=== PATIENT | male | born 1965 | race Caucasian/White ===

== ENCOUNTER 2017-04-27 11:32 | Inpatient (IN) | payer BC ==
[~2017-04-27] VITALS: Ht 175.3 cm; Wt 81.8 kg
[2017-04-27] MEDS ORDERED: DILTIAZEM 5 MG/ML, 5ML ONE ×2 (11:36→12:22)
[2017-04-27] MEDS: DILTIAZEM 5 MG/ML, 5ML IVPush ONE ×2 (11:40→12:24)
[2017-04-27] MEDS ORDERED: LISI-167 PO (11:46)
[2017-04-27] MEDS ORDERED: ENOXAPARIN 80 MG/0.8 ML ONE (11:54)
[2017-04-27] MEDS ORDERED: DILTIAZEM 125 MG in SODIUM CHLORIDE 0.9% 100 ML IV ONE (11:59)
[2017-04-27] MEDS ORDERED: ENOXAPARIN 80 MG/0.8 ML SQ SCH (12:00)
[2017-04-27] MEDS ORDERED: SODIUM CHLORIDE FLUSH 10ML SYR IVF ONE (12:00)
[2017-04-27 12:08] LABS: BASOPHILS # (AUTO) 0.01 x10^3/uL (0-0.1); BASOPHILS % (AUTO) 0 % (0-1); EOSINOPHILS # (AUTO) 0.02 x10^3/uL (0-0.4); EOSINOPHILS % (AUTO) 0 % (1-7); LYMPHOCYTES # (AUTO) 0.33 x10^3/uL (1-3.4); LYMPHOCYTES % (AUTO) 6 % (22-44); MD NO; MEAN CORPUSCULAR HEMOGLOBIN 33.6 pg (27.5-34.5); MEAN CORPUSCULAR VOLUME 98.8 fL (81-97); MEAN PLATELET VOLUME 8.8 fL (7.4-10.4); MONOCYTES # (AUTO) 0.36 x10^3/uL (0.2-0.8); MONOCYTES % (AUTO) 7 % (2-9); NEUTROPHILS # (AUTO) 4.41 x10^3/uL (1.8-6.8); NEUTROPHILS % (AUTO) 86 % (42-75); PLATELET COUNT 252 x10^3/uL (130-400); RED BLOOD COUNT 4.98 x10^6/uL (4.38-5.82)
[2017-04-27 12:12] LABS: INTERNATIONAL NORMALIZED RATIO 1.08 (0.93-1.1); PROTHROMBIN TIME 11.1 Seconds (9.6-11.5)
[2017-04-27 12:17] LABS: ANION GAP 11 mmol/L (5-15); CALCIUM 8.6 mg/dL (8.5-10.1); CHLORIDE 102 mmol/L (98-107)
[2017-04-27 12:22] LABS: TROPONIN I < 0.015 ng/mL (0.000-0.045)
[2017-04-27] MEDS ORDERED: DILTIAZEM 5 MG/ML, 5ML IVPush ONE (12:30)
[2017-04-27] MEDS ORDERED: SODIUM CHLORIDE 0.9% 1,000ML IVBOLUS ONE (13:00)
[2017-04-27] MEDS ORDERED: SODIUM CHLORIDE 0.9% 1,000 ML IV SCH (13:57)
[2017-04-27] MEDS ORDERED: DOCUSATE 100 MG CAPSULE PO PRN (14:00)
[2017-04-27] MEDS ORDERED: ACETAMINOPHEN 325 MG TABLET PO PRN (14:00)
[2017-04-27] MEDS ORDERED: ONDANSETRON 2MG/ML, 2ML IVPush PRN (14:00)
[2017-04-27] MEDS ORDERED: HYDROcodone/APAP 5/325 TABLET PO PRN (14:00)
[2017-04-27] MEDS ORDERED: morphine SULFATE 10 MG/ML, 1ML IVPush PRN (14:00)
[2017-04-27] MEDS: ENOXAPARIN 80 MG/0.8 ML SQ SCH ×2 (15:33→23:21)
[2017-04-27 15:40] VITALS: BP 92/51
[2017-04-27] MEDS ORDERED: AMIODARONE 900 MG in DEXTROSE 5% 482 ML IV PRN (15:58)
[2017-04-27] MEDS ORDERED: AMIODARONE 150 MG in DEXTROSE 5% 100 ML IVPB ONE (15:58)
[2017-04-27] MEDS ORDERED: FILTER 0.22 MICRON FOR AMIODARONE IV PRN (16:30)
[2017-04-27] MEDS: DILTIAZEM CD 180 MG CAP.ER.24H PO SCH (17:07)
[2017-04-27] MEDS ORDERED: DIPHENHYDRAMINE 25 MG CAPSULE PO PRN (17:30)
[2017-04-27 18:57] VITALS: BP 103/66
[2017-04-28 01:32] VITALS: BP 98/71
[2017-04-28 08:07] VITALS: BP 106/69
[2017-04-28] MEDS: DILTIAZEM CD 180 MG CAP.ER.24H PO SCH (08:28)
[2017-04-28] MEDS ORDERED: LISINOPRIL 10 MG TABLET PO SCH (09:00)
[2017-04-28] MEDS: ENOXAPARIN 80 MG/0.8 ML SQ SCH (13:05)
[2017-04-28] MEDS ORDERED: ASPI-515 PO (14:45)
[2017-04-28 16:45] VITALS: BP 113/83
== END 2017-04-28 18:29 | disposition home or self-care (01) | DRG 309 ==
LOC: ED 13:09 → EDIP 13:10 → ED 13:26 → 5SO 14:09
PROVIDERS: ADMIT Hospitalist; ATTEND Family Medicine
PROC: B246ZZ4 Ultrasonography of Right and Left Heart, Transesophageal (ICD-10-PCS; principal; 2017-04-27)
PROC: 5A2204Z Restoration of Cardiac Rhythm, Single (ICD-10-PCS; 2017-04-27)
DX: I48.0 Paroxysmal atrial fibrillation (principal); D68.69 Other thrombophilia; I10 Essential (primary) hypertension; Z79.82 Long term (current) use of aspirin; Z80.9 Family history of malignant neoplasm, unspecified; Z87.891 Personal history of nicotine dependence; Z79.899 Other long term (current) drug therapy
CPT/HCPCS: 36415; 71045; 80048; 82040; 83880; 84484; 85025; 85610; 93005; 96365; 96366; 96372; 96375; 96376; J1650; J0282; J7030; J7060

== ENCOUNTER 2018-05-21 23:23 | Inpatient (IN) | payer BC ==
[~2018-05-21] VITALS: Ht 175.3 cm; Wt 85.9 kg
[~2018-05-21 23:23] MED LIST: ASPI-515 PO; LISI-167 PO
[2018-05-21] MEDS ORDERED: PROPOFOL 10 MG/ML, 20ML ONE (23:44)
--- NOTE | 2018-05-21 23:46 | NUR ---
52 Y/O MALE BIB [facility] AFTER EXPERIENCING A SUDDEN ONSET OF DIZZINESS WITH A SYNCOPAL EPISODE IN WHICH HE WAS GUIDED TO THE FLOOR, NO TRAUMA NOTED. PT WAS FOUND TO BE IN A FIB BY EMS, RATE IN 140S. PT CONTINUES TO C/O DIZZINESS, DENIES ANY CP, SOB, N/V. BP 99/57. EMS ESTABLISHED IV AND TRANSPORTED. UPON ARRIVAL TO ER THE PT IS CAOX4 WITH A GCS OF 15, CONTINUES TO C/O DIZZINESS, DENIES ANY SOB, CP, N/V. PT STATES HE WAS IN AFIB ABOUT A WEEK AGO AND CARDIOVERTED. MONITORING EQUIPMENT APPLIED, AFIB ON MONITOR, NO ST CHANGES PRESENT, NO ECTOPY NOTED. DR. WATSON AT BEDSIDE EVALUATING PT.
[2018-05-21 23:52] LABS: BASOPHILS # (AUTO) 0.04 x10^3/uL (0-0.1); BASOPHILS % (AUTO) 1 % (0-1); EOSINOPHILS # (AUTO) 0.12 x10^3/uL (0-0.4); EOSINOPHILS % (AUTO) 2 % (1-7); LYMPHOCYTES # (AUTO) 2.23 x10^3/uL (1-3.4); LYMPHOCYTES % (AUTO) 44 % (22-44); MD NO; MEAN CORPUSCULAR HEMOGLOBIN 31.7 pg (27.5-34.5); MEAN CORPUSCULAR HGB CONC 34.6 g/dL (33.2-36.2); MEAN CORPUSCULAR VOLUME 91.4 fL (81-97); MEAN PLATELET VOLUME 7.4 fL (7.4-10.4); MONOCYTES # (AUTO) 0.72 x10^3/uL (0.2-0.8); MONOCYTES % (AUTO) 14 % (2-9); NEUTROPHILS # (AUTO) 1.99 x10^3/uL (1.8-6.8); NEUTROPHILS % (AUTO) 39 % (42-75); PLATELET COUNT 254 x10^3/uL (130-400); RED BLOOD COUNT 4.64 x10^6/uL (4.38-5.82); RED CELL DISTRIBUTION WIDTH 12.8 % (9.4-14.8)
--- NOTE | 2018-05-21 23:54 | NUR ---
CONSENT SIGNED, PT PLACED ON O2 VIA NC, AND ETCO2 ATTACHED, PADS PLACED, CODE CART AT BEDSIDE. FLUIDS INFUSING.
[2018-05-22] MEDS ORDERED: PROPOFOL 10 MG/ML, 20ML IVPush ONE
[2018-05-22] MEDS ORDERED: ONDANSETRON 2MG/ML, 2ML IVPush ONE
[2018-05-22] MEDS ORDERED: SODIUM CHLORIDE 0.9% 1,000ML IVBOLUS ONE
[2018-05-22] MEDS ORDERED: MIDAZOLAM 1 MG/ML, 2ML ONE (00:01)
[2018-05-22] MEDS ORDERED: FENTANYL PF 100 MCG/2ML ONE (00:01)
[2018-05-22 00:02] LABS: ALBUMIN 3.6 g/dL (3.4-5.0); ANION GAP 7 mmol/L (5-15); CHLORIDE 103 mmol/L (98-107); CREATININE 1.18 mg/dL (0.7-1.3)
--- NOTE | 2018-05-22 00:10 | NUR ---
PT CARDIOVERTED WITH 200J, CONVERTED TO NSR FOR A BRIEF TIME, WENT BACK INTO AFIB AT A RATE OF 140
--- NOTE | 2018-05-22 00:14 | NUR ---
PT CARDIOVERTED AGAIN AT 200J, CONVERTED TO NSR BRIEFLY AND THEN WENT BACK INTO AFIB
[2018-05-22] MEDS ORDERED: FILTER 0.22 MICRON IV ONE (00:30)
[2018-05-22] MEDS ORDERED: AMIODARONE 150 MG in DEXTROSE 5% 100 ML IV ONE (00:30)
--- NOTE | 2018-05-22 00:40 | NUR ---
PT SLEEPING, AROUSES TO VERBAL STIMULI WITH TOUCH, DENIES ANY COMPLAINTS AT THIS TIME. REMAINS IN AFIB DESPITE CARDIOVERSION X2. AMIODARONE STARTED. VITALS STABLE. SO AT BEDSIDE. WILL CONTINUE TO MONITOR.
[2018-05-22] MEDS ORDERED: MIDAZOLAM 1 MG/ML, 5ML IVPush ONE (01:00)
[2018-05-22] MEDS ORDERED: FENTANYL PF 100 MCG/2ML IV ONE (01:00)
[2018-05-22] MEDS ORDERED: AMIODARONE 900 MG in DEXTROSE 5% 482 ML IV PRN ×2 (01:00→03:00)
[2018-05-22] MEDS ORDERED: APIX5TAB PO (01:16)
[2018-05-22] MEDS: SODIUM CHLORIDE 0.9% 1,000 ML IV SCH (02:50)
[2018-05-22 02:54] VITALS: BP 95/56
[2018-05-22] MEDS ORDERED: hydrALAzine 20 MG/ML, 1ML IVPush PRN (03:00)
[2018-05-22] MEDS ORDERED: DILTIAZEM 5 MG/ML, 5ML IVPush PRN (03:00)
[2018-05-22] MEDS ORDERED: ONDANSETRON ODT 4 MG PO PRN (03:00)
[2018-05-22] MEDS ORDERED: POLYETHYLENE GLYCOL 17 GM PACKET PO PRN (03:00)
[2018-05-22] MEDS ORDERED: NITROGLYCERIN 0.4 MG BOTTLE (25 TABS) SL PRN (03:00)
[2018-05-22] MEDS ORDERED: ZOLPIDEM 5MG TABLET PO PRN (03:00)
[2018-05-22] MEDS ORDERED: GUAIFENESIN/DM 200-20MG, 10ML UDC PO PRN (03:00)
[2018-05-22] MEDS ORDERED: ONDANSETRON 2MG/ML, 2ML IVPush PRN (03:00)
[2018-05-22] MEDS ORDERED: morphine SULFATE 10 MG/ML, 1ML IVPush PRN (03:00)
[2018-05-22] MEDS ORDERED: ACETAMINOPHEN 325 MG TABLET PO PRN (03:00)
[2018-05-22] MEDS ORDERED: FLEC50TA25 PO (03:09)
[2018-05-22] MEDS ORDERED: LISI-170 PO (03:09)
[2018-05-22 06:49] VITALS: BP 117/76
[2018-05-22 07:35] LABS: ALBUMIN 3.3 g/dL (3.4-5.0); ANION GAP 2 mmol/L (5-15); CALCIUM 8.1 mg/dL (8.5-10.1); CHLORIDE 106 mmol/L (98-107); CREATININE 1.17 mg/dL (0.7-1.3)
[2018-05-22 07:38] LABS: TROPONIN I < 0.015 ng/mL (0.000-0.045)
[2018-05-22] MEDS ORDERED: LISINOPRIL 10 MG TABLET PO SCH (09:00)
[2018-05-22] MEDS ORDERED: APIXABAN 5 MG TABLET PO SCH (09:00)
[2018-05-22] MEDS: DILTIAZEM 125 MG in SODIUM CHLORIDE 0.9% 100 ML IV PRN (12:58)
[2018-05-22 14:00] VITALS: BP 111/67
[2018-05-22 19:25] VITALS: BP 145/68
[2018-05-22] MEDS: APIXABAN 5 MG TABLET PO SCH (22:32)
[2018-05-23 02:58] VITALS: BP 120/73
[2018-05-23 05:36] LABS: BASOPHILS # (AUTO) 0.03 x10^3/uL (0-0.1); BASOPHILS % (AUTO) 0 % (0-1); EOSINOPHILS # (AUTO) 0.12 x10^3/uL (0-0.4); EOSINOPHILS % (AUTO) 2 % (1-7); LYMPHOCYTES % (AUTO) 33 % (22-44); MD NO; MEAN CORPUSCULAR HEMOGLOBIN 31.6 pg (27.5-34.5); MEAN CORPUSCULAR HGB CONC 34.2 g/dL (33.2-36.2); MEAN CORPUSCULAR VOLUME 92.3 fL (81-97); MEAN PLATELET VOLUME 7.7 fL (7.4-10.4); MONOCYTES # (AUTO) 0.81 x10^3/uL (0.2-0.8); MONOCYTES % (AUTO) 13 % (2-9); NEUTROPHILS % (AUTO) 52 % (42-75); PLATELET COUNT 251 x10^3/uL (130-400); RED BLOOD COUNT 4.97 x10^6/uL (4.38-5.82)
[2018-05-23 05:41] LABS: ALANINE AMINOTRANSFERASE 125 U/L (12-78); ALBUMIN 3.3 g/dL (3.4-5.0); ANION GAP 5 mmol/L (5-15); CALCIUM 8.2 mg/dL (8.5-10.1); CHLORIDE 104 mmol/L (98-107)
[2018-05-23 05:44] LABS: ALKALINE PHOSPHATASE 111 U/L (45-117); BILIRUBIN,TOTAL 0.6 mg/dL (0.2-1.0); CREATININE 1.02 mg/dL (0.7-1.3); TOTAL PROTEIN 6.9 g/dL (6.4-8.2)
[2018-05-23] MEDS: SODIUM CHLORIDE 0.9% 1,000 ML IV SCH (05:49)
[2018-05-23 07:54] VITALS: BP 119/65
[2018-05-23] MEDS: APIXABAN 5 MG TABLET PO SCH ×2 (08:04→21:49)
[2018-05-23] MEDS: DILTIAZEM 125 MG in SODIUM CHLORIDE 0.9% 100 ML IV PRN (09:40)
[2018-05-23] MEDS ORDERED: MIDAZOLAM 1 MG/ML, 2ML ONE (10:38)
[2018-05-23] MEDS ORDERED: PROPOFOL 50 ML ONE (10:38)
[2018-05-23] MEDS ORDERED: FENTANYL PF 250 MCG/5ML ONE (10:42)
[2018-05-23] MEDS ORDERED: ROCURONIUM 10MG/ML,5ML ONE (10:45)
[2018-05-23] MEDS ORDERED: ONDANSETRON 2MG/ML, 2ML ONE (10:45)
[2018-05-23] MEDS ORDERED: SUCCINYLCHOLINE 20 MG/ML, 10ML ONE (10:45)
[2018-05-23] MEDS ORDERED: DEXAMETHASONE 4 MG/ML, 1ML ONE (10:45)
[2018-05-23] MEDS ORDERED: LIDOCAINE 2%, 20ML ONE (11:16)
[2018-05-23] MEDS ORDERED: PROTAMINE SULFATE 10 MG/ML, 5ML ONE (12:31)
[2018-05-23] MEDS ORDERED: ACETAMINOPHEN 325 MG TABLET PO PRN (13:00)
[2018-05-23] MEDS ORDERED: ONDANSETRON 2MG/ML, 2ML IV PRN (13:30)
[2018-05-23] MEDS ORDERED: OXYcodone 5 MG/5 ML ORAL.SOL UDC PO PRN (13:30)
[2018-05-23] MEDS ORDERED: FENTANYL PF 100 MCG/2ML IV PRN (13:30)
[2018-05-23] MEDS ORDERED: PROMETHAZINE 25 MG/ML, 1ML IV PRN (13:30)
[2018-05-23] MEDS ORDERED: MEPERIDINE/PF 25MG/0.5ML IVPush PRN (13:30)
[2018-05-23] MEDS ORDERED: MIDAZOLAM 1 MG/ML, 2ML IV PRN (13:30)
[2018-05-23] MEDS ORDERED: HYDROmorphone 2 MG/ML, 1ML IVPush PRN (13:30)
[2018-05-23] MEDS ORDERED: OXYcodone 5 MG/5 ML ORAL.SOL UDC ONE (13:34)
[2018-05-23] MEDS ORDERED: FENTANYL PF 100 MCG/2ML ONE (13:34)
[2018-05-23] MEDS: FLECAINIDE 100MG TABLET PO SCH (14:40)
[2018-05-23 14:41] VITALS: BP 113/72
[2018-05-23 20:13] VITALS: BP 122/72
[2018-05-24 00:10] VITALS: BP 125/68
[2018-05-24] MEDS: FLECAINIDE 100MG TABLET PO SCH ×2 (02:37→14:43)
[2018-05-24 06:16] LABS: ALBUMIN 2.8 g/dL (3.4-5.0); ANION GAP 6 mmol/L (5-15); CALCIUM 7.9 mg/dL (8.5-10.1); CHLORIDE 102 mmol/L (98-107); CREATININE 0.86 mg/dL (0.7-1.3)
[2018-05-24 07:42] VITALS: BP 136/87
[2018-05-24] MEDS: APIXABAN 5 MG TABLET PO SCH (08:16)
[2018-05-24 13:22] VITALS: BP 143/83
[2018-05-24] MEDS ORDERED: FLEC100T PO (14:17)
[2018-05-24] MEDS ORDERED: APIX5TAB PO (14:17)
== END 2018-05-24 18:00 | disposition home or self-care (01) | DRG 274 ==
LOC: ED 05-22 00:39 → EDIP 05-22 00:44 → 5SO 05-22 02:30
PROVIDERS: ADMIT Hospitalist; ATTEND Hospitalist
PROC: 5A2204Z Restoration of Cardiac Rhythm, Single (ICD-10-PCS; principal; 2018-05-22)
PROC: 02583ZZ Destruction of Conduction Mechanism, Percutaneous Approach (ICD-10-PCS; 2018-05-23)
PROC: 02K83ZZ Map Conduction Mechanism, Percutaneous Approach (ICD-10-PCS; 2018-05-23)
PROC: 4A023FZ Measurement of Cardiac Rhythm, Percutaneous Approach (ICD-10-PCS; 2018-05-23)
PROC: 4A0234Z Measurement of Cardiac Electrical Activity, Percutaneous Approach (ICD-10-PCS; 2018-05-23)
PROC: B246ZZZ Ultrasonography of Right and Left Heart (ICD-10-PCS; 2018-05-23)
PROC: 03HY32Z Insertion of Monitoring Device into Upper Artery, Percutaneous Approach (ICD-10-PCS; 2018-05-23)
DX: I48.0 Paroxysmal atrial fibrillation (principal); D68.59 Other primary thrombophilia; I48.92 Unspecified atrial flutter; I11.9 Hypertensive heart disease without heart failure; I34.0 Nonrheumatic mitral (valve) insufficiency; Z79.01 Long term (current) use of anticoagulants; Z80.9 Family history of malignant neoplasm, unspecified; Z87.891 Personal history of nicotine dependence
CPT/HCPCS: 36415; 71045; 80048; 80053; 82040; 83735; 84100; 84443; 84484; 85025; 85347; 92960; 93005; 93306; 93308; 93312; 93321; 93325; 93613; 93655; 93656; 93662; 96365; 99152; 99291; C1732; C1894; G0378; J1100; J2250; J2405; J2704; J2720; J3010; J3490; C1730; C1759; J0282; J0330; J1642; J7030; J7060